=== PATIENT | female | born 1955 | race Caucasian/White ===

== ENCOUNTER 2018-04-28 12:39 | Emergency (ER) | payer SELFPAY ==
[~2018-04-28] VITALS: Ht 154.9 cm; Wt 43.0 kg
[2018-04-28 12:44] VITALS: BP 118/89
== END 2018-04-28 15:27 | disposition home or self-care (01) ==
LOC: ER 12:40
DX: F41.9 Anxiety disorder, unspecified (principal); F32.9 Major depressive disorder, single episode, unspecified; F17.210 Nicotine dependence, cigarettes, uncomplicated; Z88.1 Allergy status to other antibiotic agents
CPT/HCPCS: 99284